=== PATIENT | female | born 1935 ===

== ENCOUNTER → 2025-06-11 12:40 | Outpatient (BNVA) | payer MEDICARE, SELFPAY | PROVIDERS: Visit Provider Nurse Practitioner Family | DX: L57.8 Other skin changes due to chronic exposure to nonionizing radiation (principal); X32.XXXA Exposure to sunlight, initial encounter; L82.1 Other seborrheic keratosis; L81.4 Other melanin hyperpigmentation; D18.01 Hemangioma of skin and subcutaneous tissue; I89.0 Lymphedema, not elsewhere classified; L73.8 Other specified follicular disorders; D17.24 Benign lipomatous neoplasm of skin and subcutaneous tissue of left leg; L56.8 Other specified acute skin changes due to ultraviolet radiation; L53.8 Other specified erythematous conditions; R20.8 Other disturbances of skin sensation; D48.5 Neoplasm of uncertain behavior of skin | CPT/HCPCS: 11102; 17110; 99203 ==

== ENCOUNTER → 2025-07-14 07:37 | Outpatient (BNVA) | payer MEDICARE, SELFPAY | PROVIDERS: Visit Provider Dermatology | DX: L81.4 Other melanin hyperpigmentation (principal); L57.8 Other skin changes due to chronic exposure to nonionizing radiation; X32.XXXA Exposure to sunlight, initial encounter; L82.1 Other seborrheic keratosis; D18.01 Hemangioma of skin and subcutaneous tissue; D48.5 Neoplasm of uncertain behavior of skin; L56.8 Other specified acute skin changes due to ultraviolet radiation | CPT/HCPCS: 11622; 13132; 17000; 99213 ==